=== PATIENT | female | born 1935 | race Caucasian/White ===

== ENCOUNTER 2016-11-18 14:08 | Emergency (ER) | payer OTHER ==
[2016-11-18] MEDS ORDERED: MAALOX/LIDO/HYOSC GI COCKTAIL 55 ML BOTTLE PO ONE (14:20)
[2016-11-18 14:22] VITALS: RESP 16; TEMP 98.1; O2SAT 95
--- NOTE | 2016-11-18 14:23 | EDPHY ---
H & P Time Seen by Provider: 11/18/16 14:08 HPI/ROS: CHIEF COMPLAINT: Abdominal pain HISTORY OF PRESENT ILLNESS: Patient is sent from [facility] for epigastric abdominal pain which apparently made her diaphoretic and was severe earlier but now apparently is gone. Patient has no medical complaints on arrival. She says she does not have abdominal pain. Denies vomiting or diarrhea or recent fall or trauma or any other acute problems. She has a history of reflux and says she has symptoms just like her previous heartburn earlier today. REVIEW OF SYSTEMS: Eye: no change in vision ENT: no sore throat Cardiac: no chest pain or syncope Pulmonary: no cough or SOB Abdomen: HPI Musculoskeletal: no back pain Skin: no rash Neuro: no headache Constitutional: no fever : no urinary symptoms A comprehensive 10 point review of systems is otherwise negative aside from elements mentioned in the history of present illness. PAST MEDICAL HISTORY: Includes atrial fibrillation on Eliquis, anemia, dementia and encephalopathy, COPD, pulmonary embolism, TIA, bilateral total hip arthroplasties, left total knee arthroplasty, GI bleed. Social history: Resides at [facility] General Appearance: Alert and conversant, cooperative. Eyes: No scleral icterus. ENT, Mouth: Normal mucous membranes. Respiratory: Normal respiratory effort, breath sounds equal, lungs are clear to auscultation. Cardiovascular: Regular rate and rhythm. Gastrointestinal: Abdomen is soft and non tender. Neurological: Alert and oriented x3. Normally conversant. Face symmetric, normal movement and sensation in all extremities. Skin: Warm and dry, no rashes. Musculoskeletal: No peripheral edema and no joint swelling. Psychiatric: Not agitated. Patient is very talkative and in fact it is difficult for me to interrupt her talking to ask her questions. Emergency Department course/MDM: Patient denies symptoms on arrival to the emergency department. She does not have abdominal pain and her abdominal exam is normal. Her hematocrit is 36 which is noted to be higher than previous values. She does not have ischemic changes on EKG. Smoking Status: Never smoked Constitutional: Initial Vital Signs Temperature (C) 36.7 C 11/18/16 14:08 Heart Rate 58 L 11/18/16 14:08 Respiratory Rate 16 11/18/16 14:08 Blood Pressure 121/69 H 11/18/16 14:08 O2 Sat (%) 95 11/18/16 14:08 O2 Delivery Mode Room Air Allergies/Adverse Reactions: latex [Latex] Allergy (Severe, Verified 11/18/16 14:16) Other-Enter Comments Sulfa (Sulfonamide Antibiotics) Allergy (Severe, Verified 11/18/16 14:16) Other-Enter Comments adhesive [Adhesive] Allergy (Unknown, Verified 11/18/16 14:16) Other-Enter Comments morphine Allergy (Unknown, Verified 11/18/16 14:16) Unknown furosemide [From Lasix] Allergy (Verified 11/18/16 14:16) Penicillins Allergy (Verified 11/18/16 14:16) Neutrogena SPF lotion Allergy (Severe, Uncoded 11/18/16 14:16) Other-Enter Comments Home Medications: Medication Instructions Recorded Carafate 1 GM (*) 11/18/16 Claritin 11/18/16 Dulcolax 11/18/16 Eliquis 11/18/16 Milk of Magnesia 11/18/16 OXYBUTYNIN CHLORIDE ER 11/18/16 Protonix 11/18/16 Robitussin 11/18/16 Tylenol 11/18/16 VITAMIN D 11/18/16 Medical Decision Making - Diagnostics EKG Interpretation: 12-lead EKG interpreted by me; official reading is in trace master. My interpretation is sinus rhythm with no acute ischemic changes Differential Diagnosis: Differential considered including but not limited to GI bleed, reflux, acute coronary syndrome, pancreatitis, aortic dissection, perforated ulcer - Data Points Laboratory Results: Laboratory Results 11/18/16 14:15 11/18/16 14:15 WBC 6.40 10^3/uL 10^3/uL (3.80-9.50) RBC 4.26 10^6/uL 10^6/uL (4.18-5.33) Hgb 11.6 g/dL L g/dL (12.6-16.3) Hct 36.5 % L % (38.0-47.0) MCV 85.7 fL fL (81.5-99.8) MCH 27.2 pg L pg (27.9-34.1) MCHC 31.8 g/dL L g/dL (32.4-36.7) RDW 15.9 % H % (11.5-15.2) Plt Count 306 10^3/uL 10^3/uL (150-400) MPV 8.7 fL fL (8.7-11.7) Neut % (Auto) 55.6 % % (39.3-74.2) Lymph % (Auto) 34.5 % % (15.0-45.0) [place] % (Auto) 6.4 % % (4.5-13.0) Eos % (Auto) 2.5 % % (0.6-7.6) Baso % (Auto) 0.8 % % (0.3-1.7) Nucleat RBC Rel Count 0.0 % % (0.0-0.2) Absolute Neuts (auto) 3.56 10^3/uL 10^3/uL (1.70-6.50) Absolute Lymphs (auto) 2.21 10^3/uL 10^3/uL (1.00-3.00) Absolute Monos (auto) 0.41 10^3/uL 10^3/uL (0.30-0.80) Absolute Eos (auto) 0.16 10^3/uL 10^3/uL (0.03-0.40) Absolute Basos (auto) 0.05 10^3/uL 10^3/uL (0.02-0.10) Absolute Nucleated RBC 0.00 10^3/uL 10^3/uL (0-0.01) Immature Gran % 0.2 % % (0.0-1.1) Immature Gran # 0.01 10^3/uL 10^3/uL (0.00-0.10) Medications Given: Discontinued Medications Miscellaneous Medication (Gi Cocktail) 55 ml PO EDNOW ONE Stop: 11/18/16 14:21 Last Admin: 11/18/16 14:45 Dose: 55 ml Departure - Departure Disposition: Home, Routine, Self-Care Clinical Impression: GERD (gastroesophageal reflux disease) Qualifiers: Esophagitis presence: esophagitis presence not specified Qualified Code(s): K21.9 - Gastro-esophageal reflux disease without esophagitis Condition: Good Instructions: Gastroesophageal Reflux Disease (ED) Referrals: RAYMOND GARDNER [Medical Doctor] - As per Instructions
[2016-11-18 14:27] LABS: % IMMATURE GRANULYOCYTES 0.2 % (0.0-1.1); ABSOLUTE IMMATURE GRANULOCYTES 0.01 10^3/uL (0.00-0.10); ADD DIFF? NO; ADD MORPH? NO; ADD SCAN? NO; ATYPICAL LYMPHOCYTE FLAG 0 (0-99); FRAGMENT RBC FLAG 0 (0-99); HEMATOCRIT 36.5 % (38.0-47.0); HEMOGLOBIN 11.6 g/dL (12.6-16.3); LEFT SHIFT FLG 0 (0-99); LIPEMIA HEMOLYSIS FLAG 80 (0-99); MEAN CELL HEMOGLOBIN 27.2 pg (27.9-34.1); MEAN CELL HEMOGLOBIN CONCENTR. 31.8 g/dL (32.4-36.7); MEAN CELL VOLUME 85.7 fL (81.5-99.8); MEAN PLATELET VOLUME 8.7 fL (8.7-11.7); PLATELET CLUMPS FLAG 0 (0-99); PLATELET COUNT 306 10^3/uL (150-400); RED BLOOD CELL COUNT 4.26 10^6/uL (4.18-5.33); RED CELL DISTRIBUTION WIDTH 15.9 % (11.5-15.2)
--- NOTE | 2016-11-18 15:13 | CPEKG ---
Heart Rate: 55 RR Interval: 1091 P-R Interval: 180 QRSD Interval: 84 QT Interval: 416 QTC Interval: 398 QRS [place]: 3 T Wave [place]: 13 EKG Severity - ABNORMAL ECG - EKG Impression: SINUS RHYTHM Electronically Signed By: Virgil Hanson 18-Nov-2016 16:11:37
[2016-11-18 15:21] VITALS: BP 102/62; PULSE 55
== END 2016-11-18 16:02 | disposition home or self-care (01) ==
LOC: EDUNIT#
DX: K21.9 Gastro-esophageal reflux disease without esophagitis (principal); J44.9 Chronic obstructive pulmonary disease, unspecified; Z91.040 Latex allergy status

== ENCOUNTER → 2016-12-16 | Outpatient (CLI) | payer OTHER | LOC: FIMAGING 08:19 | PROVIDERS: ATTEND Physician Assistant | DX: K44.9 Diaphragmatic hernia without obstruction or gangrene (principal); K31.84 Gastroparesis ==

== ENCOUNTER 2017-04-28 09:04 | Inpatient (IN) | payer OTHER ==
--- NOTE | 2017-04-28 09:02 | EDPHY ---
HPI/HX/ROS/PE/MDM Narrative: CHIEF COMPLAINT: Vomiting HPI: The patient is a an 81-year-old female who comes from [place] with complaints of black emesis. Patient reports black colored emesis for the past week. She has no associated abdominal pain. The patient has a history of GI bleed. She is on Eliquis for atrial fibrillation. History is otherwise limited due to patient's dementia. REVIEW OF SYSTEMS: Aside from elements discussed in the HPI, a comprehensive 10-point review of systems was reviewed and is negative. PMH: Atrial fibrillation on Eliquis, Anemia, Dementia, Encephalopathy, COPD, PE , TIA, GI bleed. SOCIAL HISTORY: Resides at [place]. PHYSICAL EXAM: General: Patient is alert, in no acute distress. ENT: Eyes are normal to inspection. ENT inspection normal. Neck: Normal inspection. Full range of motion. Respiratory: No respiratory distress. Breath sounds normal bilaterally. Cardiovascular: Regular rate and rhythm. Strong peripheral pulses. Abdomen: The abdomen is nontender to palpation. There are no peritoneal signs. There are normal bowel sounds. Back: Normal to inspection. No tenderness to palpation. Possible very early decubitis with no skin breakdown. Rectal: Brown stool noted. Sample sent. Skin: Normal color. No rash. Warm and dry. Extremities: Normal appearance. Full range of motion. Neuro: No focal deficits. ED Course: I reviewed the patient's past medical records from her visit here 11/18/16. Patient has a history of multiple admissions for GI bleeds. She is on Eliquis. Patient reports 1 week of black emesis. Hematocrit is normal. Vitals are stable. Due to patient's history and symptoms, I will admit the patient. 1008: I spoke to the hospitalist, Dr. Villegas, who accepts patient for admission. MDM: This patient presents with reported one week history of coffee-ground emesis. History is somewhat challenging given history of dementia. There are no objective data to support this hematemesis, as patient has normal Hct, normal vitals and brown stool. However, the patient does have history of multiple admissions for upper GI bleed requiring transfusion, and is currently on Eliquis. I think she would benefit from an observation stay in the hospital. - Data Points Laboratory Results: Laboratory Results 04/28/17 09:28 04/28/17 09:28 04/28/17 04/28/17 04/28/17 09:28 09:28 09:28 WBC 11.38 10^3/uL H 10^3/uL (3.80-9.50) RBC 5.13 10^6/uL 10^6/uL (4.18-5.33) Hgb 14.2 g/dL g/dL (12.6-16.3) Hct 43.8 % % (38.0-47.0) MCV 85.4 fL fL (81.5-99.8) MCH 27.7 pg L pg (27.9-34.1) MCHC 32.4 g/dL g/dL (32.4-36.7) RDW 14.7 % % (11.5-15.2) Plt Count 297 10^3/uL 10^3/uL (150-400) MPV 9.2 fL fL (8.7-11.7) Neut % (Auto) 76.5 % H % (39.3-74.2) Lymph % (Auto) 17.5 % % (15.0-45.0) [place] % (Auto) 5.1 % % (4.5-13.0) Eos % (Auto) 0.2 % L % (0.6-7.6) Baso % (Auto) 0.4 % % (0.3-1.7) Nucleat RBC Rel Count 0.0 % % (0.0-0.2) Absolute Neuts (auto) 8.72 10^3/uL H 10^3/uL (1.70-6.50) Absolute Lymphs (auto) 1.99 10^3/uL 10^3/uL (1.00-3.00) Absolute Monos (auto) 0.58 10^3/uL 10^3/uL (0.30-0.80) Absolute Eos (auto) 0.02 10^3/uL L 10^3/uL (0.03-0.40) Absolute Basos (auto) 0.04 10^3/uL 10^3/uL (0.02-0.10) Absolute Nucleated RBC 0.00 10^3/uL 10^3/uL (0-0.01) Immature Gran % 0.3 % % (0.0-1.1) Immature Gran # 0.03 10^3/uL 10^3/uL (0.00-0.10) PT 15.0 SEC SEC (12.0-15.0) INR 1.18 H (0.83-1.16) APTT 20.1 SEC L SEC (23.0-38.0) Sodium 143 mEq/L mEq/L (134-144) Potassium 4.7 mEq/L mEq/L (3.5-5.2) Chloride 102 mEq/L mEq/L (97-110) Carbon Dioxide 26 mEq/l mEq/l (22-31) Anion Gap 15 mEq/L mEq/L (8-16) BUN 28 mg/dL H mg/dL (7-23) Creatinine 0.9 mg/dL mg/dL (0.6-1.0) Estimated GFR > 60 Glucose 131 mg/dL H mg/dL (70-100) Calcium 10.3 mg/dL mg/dL (8.5-10.4) General Initial Vital Signs: Initial Vital Signs Temperature (C) 36.5 C 04/28/17 09:16 Heart Rate 69 04/28/17 09:16 Respiratory Rate 18 04/28/17 09:16 Blood Pressure 127/74 H 04/28/17 09:16 O2 Sat (%) 93 04/28/17 09:16 O2 Delivery Mode Room Air O2 (L/minute) 2 Allergies/Adverse Reactions: latex [Latex] Allergy (Severe, Verified 11/18/16 14:16) Other-Enter Comments Sulfa (Sulfonamide Antibiotics) Allergy (Severe, Verified 11/18/16 14:16) Other-Enter Comments adhesive [Adhesive] Allergy (Unknown, Verified 11/18/16 14:16) Other-Enter Comments morphine Allergy (Unknown, Verified 11/18/16 14:16) Unknown furosemide [From Lasix] Allergy (Verified 11/18/16 14:16) Penicillins Allergy (Verified 11/18/16 14:16) Neutrogena SPF lotion Allergy (Severe, Uncoded 11/18/16 14:16) Other-Enter Comments Home Medications: Medication Instructions Recorded Carafate 1 GM (*) 11/18/16 Claritin 11/18/16 Dulcolax 11/18/16 Eliquis 11/18/16 Milk of Magnesia 11/18/16 OXYBUTYNIN CHLORIDE ER 11/18/16 Protonix 11/18/16 Robitussin 11/18/16 Tylenol 11/18/16 VITAMIN D 11/18/16 Departure - Departure Disposition: [facility] Inpatient Acute Clinical Impression: Vomiting Qualifiers: Vomiting type: unspecified Vomiting Intractability: non-intractable Nausea presence: unspecified Qualified Code(s): R11.10 - Vomiting, unspecified Condition: Fair Report Scribed for: Adam Anna Report Scribed by: Christine Jackson Date of Report: 04/28/17 Time of Report: 09:12 Physician Review and Approval Statement: Portions of this note were transcribed by a medical secretary receptionist. I personally performed the history, physical exam, and medical decision-making; and confirmed the accuracy of the information in the transcribed note.
--- NOTE | 2017-04-28 09:37 | CPEKG ---
Heart Rate: 65 RR Interval: 923 P-R Interval: 148 QRSD Interval: 88 QT Interval: 408 QTC Interval: 425 P [place]: 19 QRS [place]: 35 T Wave [place]: -75 EKG Severity - ABNORMAL ECG - EKG Impression: SINUS RHYTHM EKG Impression: Artifact Electronically Signed By: Junior Wynn 30-Apr-2017 08:16:57
[2017-04-28 09:46] LABS: % IMMATURE GRANULYOCYTES 0.3 % (0.0-1.1); ABSOLUTE IMMATURE GRANULOCYTES 0.03 10^3/uL (0.00-0.10); ADD DIFF? NO; ADD MORPH? NO; ADD SCAN? NO; ATYPICAL LYMPHOCYTE FLAG 0 (0-99); FRAGMENT RBC FLAG 0 (0-99); HEMATOCRIT 43.8 % (38.0-47.0); HEMOGLOBIN 14.2 g/dL (12.6-16.3); LEFT SHIFT FLG 0 (0-99); LIPEMIA HEMOLYSIS FLAG 80 (0-99); MEAN CELL HEMOGLOBIN 27.7 pg (27.9-34.1); MEAN CELL HEMOGLOBIN CONCENTR. 32.4 g/dL (32.4-36.7); MEAN CELL VOLUME 85.4 fL (81.5-99.8); MEAN PLATELET VOLUME 9.2 fL (8.7-11.7); PLATELET CLUMPS FLAG 0 (0-99); PLATELET COUNT 297 10^3/uL (150-400); RED BLOOD CELL COUNT 5.13 10^6/uL (4.18-5.33); RED CELL DISTRIBUTION WIDTH 14.7 % (11.5-15.2)
[2017-04-28 09:56] LABS: INR 1.18 (0.83-1.16)
[2017-04-28 09:58] LABS: APTT 20.1 SEC (23.0-38.0)
[2017-04-28 10:09] LABS: ANION GAP 15 mEq/L (8-16); CALCIUM 10.3 mg/dL (8.5-10.4); CARBON DIOXIDE 26 mEq/l (22-31); CHLORIDE 102 mEq/L (97-110); CREATININE 0.9 mg/dL (0.6-1.0); GLOMERULAR FILTRATION RATE > 60; GLUCOSE 131 mg/dL (70-100); POTASSIUM 4.7 mEq/L (3.5-5.2); SODIUM 143 mEq/L (134-144)
[2017-04-28] MEDS ORDERED: ONDANSETRON DISINTEGRATING 4 MG TAB PO PRN ×2 (13:22→13:24)
[2017-04-28] MEDS ORDERED: ACETAMINOPHEN 325 MG TAB PO PRN (13:22)
[2017-04-28] MEDS ORDERED: ONDANSETRON 4 MG/2 ML VIAL IVP PRN (13:22)
[2017-04-28] MEDS ORDERED: BENZOCAINE (ORAJEL) GEL 11.9GM TUBE TP PRN (13:24)
[2017-04-28] MEDS ORDERED: NS 1,000 ML IV SCH (13:30)
[2017-04-28 14:02] LABS: HEMATOCRIT 39.9 % (38.0-47.0); HEMOGLOBIN 13.2 g/dL (12.6-16.3)
--- NOTE | 2017-04-28 14:43 | GHP ---
[f rep st] HISTORY AND PHYSICAL DATE OF ADMISSION: 04/28/2017 HISTORY OF PRESENT ILLNESS: The patient is a pleasant 81-year-old female with history of anticoagul ation for multiple VTE events, as well as recurrent episodes of upper GI bleed, who presents with da rk vomit. She has been vomiting for what she says is about a week. The patient has some memory iss ues, so a bit hard to exactly trust her history. She has not had any melena. She has not had any b right red blood per rectum. She has not had any hematemesis. She lives at [place], so it is sharyn sonable to assume that she continues to take her medications. REVIEW OF SYSTEMS: A complete 10-point review of systems is conducted and negative except as noted in the HPI. PAST MEDICAL HISTORY: 1. Upper GI bleed secondary to esophageal ulcers and esophagitis. She has also had Varghese lesion secondary to hiatal hernia implicated. 2. Incarcerated hiatal hernia, status post Rosalie by Dr. Fam about a year ago. 3. Atrial fibrillation. 4. Recurrent PEs and DVTs. 5. Bipolar. 6. Dementia. 7. History of stroke without residual deficit. 8. History of left total knee arthroplasty. 9. Bilateral hip replacements. ALLERGIES: She is allergic to penicillin, sulfa, latex, morphine, and adhesive. HOME MEDICATIONS: Eliquis, pantoprazole, Tylenol, benzocaine, vitamin D3, nadolol, ondansetron, oxy butynin, sucralfate. SOCIAL HISTORY: She lives at [place]. No tobacco, no alcohol at this point in time. FAMILY HISTORY: Parents . PHYSICAL EXAMINATION: PRESENTING VITALS: Blood pressure 124/74, pulse 69, breathing 18 times a min nulato, 93% on room air. GENERAL: No acute distress. HEENT: Sclerae anicteric. Oropharynx clear. Mucous membranes moist. NECK: Supple without lymphadenopathy or JVD. LUNGS: Clear to auscultatio n bilaterally. HEART: S1, S2. ABDOMEN: Soft, nontender, nondistended. LOWER EXTREMITIES: Witho ut edema. Calves nontender. SKIN: Without rash. NEUROLOGIC: Nonfocal. There is a bucket with about 500 cc of dark brown emesis in it. LABORATORY DATA: White count 11.4, hematocrit 43.8, platelets are 297. In the past, she has presen yesenia with very low hemoglobin, like 5.9 most recently in June. INR is 1.18. Sodium 143, potassiu m 4.7, chloride 102, bicarb 26, BUN 28, creatinine 0.9, glucose 131. Stool is guaiac positive. I perla abarca discussed the case with Dr. Adam Anna. EKG, interpreted by me, shows sinus at 65 with norm al axis and intervals. No ST or T-wave changes. ASSESSMENT AND PLAN: An 81-year-old female with a history of upper gastrointestinal bleed, presents with upper gastrointestinal bleed. 1. Upper gastrointestinal bleed. Presumably, she has esophagitis. I will go ahead and follow her hematocrit. I put her on a proton pump inhibitor IV b.i.d. Continue with sucralfate. At this point in time, I am going to hold off on GI consult given her absence of anemia. Will follow hematocrit q.6. 2. History of multiple venous thromboembolism. I am going to hold her Eliquis for the time being. 3. Dementia. We will follow and minimize sedating medications. 4. No bowel movement in 1 week. It is difficult to know if this is clear or not. I will check an abdominal x-ray with chest x-ray for further evaluation. 5. Prophylaxis. Pharmacologic prophylaxis contraindicated. DISPOSITION: Inpatient status. /[id number]/MODL
[2017-04-28] MEDS ORDERED: SUCRALFATE 100 MG/ML UDSYR PO SCH (16:00)
[2017-04-28] MEDS: SUCRALFATE 1 GM/10 ML UDCUP PO SCH ×2 (16:29→21:45)
[2017-04-28 19:40] LABS: HEMATOCRIT 35.8 % (38.0-47.0); HEMOGLOBIN 11.6 g/dL (12.6-16.3)
[2017-04-28] MEDS: PANTOPRAZOLE SODIUM 40 MG in NS 100 ML IV SCH (21:45)
[2017-04-28] MEDS: OXYBUTYNIN 5 MG EXT REL TAB PO SCH (21:45)
[2017-04-29] MEDS: OXYBUTYNIN 5 MG EXT REL TAB PO SCH ×2 (00:55→21:23)
[2017-04-29] MEDS: SUCRALFATE 1 GM/10 ML UDCUP PO SCH ×5 (00:55→21:25)
[2017-04-29 05:17] LABS: APTT 24.1 SEC (23.0-38.0); INR 1.44 (0.83-1.16); PROTIME(PATIENT) 17.5 SEC (12.0-15.0)
[2017-04-29 05:28] LABS: ANION GAP 12 mEq/L (8-16); CALCIUM 8.9 mg/dL (8.5-10.4); CARBON DIOXIDE 22 mEq/l (22-31); CHLORIDE 106 mEq/L (97-110); CREATININE 0.8 mg/dL (0.6-1.0); GLOMERULAR FILTRATION RATE > 60; GLUCOSE 91 mg/dL (70-100); POTASSIUM 4.2 mEq/L (3.5-5.2); SODIUM 140 mEq/L (134-144)
[2017-04-29] MEDS: NADOLOL 20 MG TAB PO SCH (07:40)
[2017-04-29] MEDS: CHOLECALCIFEROL VIT D3 2,000 UNITS TAB/CAP PO SCH (09:04)
[2017-04-29] MEDS: PANTOPRAZOLE SODIUM 40 MG in NS 100 ML IV SCH ×2 (09:04→21:53)
[2017-04-29] MEDS ORDERED: GOLYTELY 4000 ML BTL PO ONE (10:58)
--- NOTE | 2017-04-29 11:39 | HOSPPROG ---
Hospitalist Progress Note Assessment/Plan: 81 yo F w chronic anticoag for recurrent VTE and repeated admits for UGIB here w dark emesis, severe constipation constipation: golytley prep until BM benign exam ?UGIB: AC on hold hct > baseline bid IV ppi dark vomit has stopped follow w no endoscopy today bipolar: continue meds proph: as above restart eliquis in exam dispo: inpt Subjective: abd film w severe constipation (interp by me). no further vomiting Objective: Vital Signs Temp Pulse Resp BP Pulse Ox 36.8 C 73 16 111/65 93 04/29/17 08:00 04/29/17 08:00 04/29/17 08:00 04/29/17 08:00 04/29/17 08:00 Laboratory Results 04/28/17 19:25 04/29/17 04:20 04/28/17 04/29/17 04/30/17 05:59 05:59 05:59 Intake Total 2101 Output Total 800 Balance 1301 PT 17.5 SEC (12.0-15.0) H 04/29/17 04:20 INR 1.44 (0.83-1.16) H 04/29/17 04:20 - Physical Exam Constitutional: no apparent distress, appears nourished Eyes: PERRL, anicteric sclera Ears, Nose, Mouth, Throat: moist mucous membranes, hearing normal Cardiovascular: regular rate and rhythym, no murmur, rub, or gallop Respiratory: no respiratory distress, no rales or rhonchi Gastrointestinal: normoactive bowel sounds, No guarding, No rebound Genitourinary: no bladder fullness, No mayberry in urethra Skin: warm, normal color Musculoskeletal: full muscle strength Neurologic: AAOx3, sensation intact bilaterally Psychiatric: interacting appropriately, not anxious ICD10 Worksheet Patient Problems: Problems Problem Status Onset Vomiting Acute Coffee ground emesis Acute DVT (deep venous thrombosis) Acute Hematemesis Acute Melena Acute Supratherapeutic INR Acute Acute post-hemorrhagic anemia Chronic Afib Chronic Atrial fibrillation with rapid ventricular response Chronic Bipolar 1 disorder Chronic COPD (chronic obstructive pulmonary disease) Chronic Chronic respiratory failure Chronic Gastrointestinal bleed Chronic History of CVA (cerebrovascular accident) Chronic History of pulmonary embolism Chronic
[2017-04-29 11:50] LABS: HEMATOCRIT 27.5 % (38.0-47.0); HEMOGLOBIN 8.9 g/dL (12.6-16.3)
[2017-04-29 13:44] LABS: HEMATOCRIT 30.7 % (38.0-47.0); HEMOGLOBIN 9.8 g/dL (12.6-16.3)
[2017-04-29] MEDS ORDERED: MAGNESIUM CITRATE 300 ML BOTTLE PO ONE (17:32)
[2017-04-29] MEDS: ACETAMINOPHEN 500 MG TAB PO PRN (21:23)
[2017-04-30 04:57] LABS: HEMATOCRIT 26.3 % (38.0-47.0); HEMOGLOBIN 8.6 g/dL (12.6-16.3)
[2017-04-30 05:15] LABS: ANION GAP 8 mEq/L (8-16); CALCIUM 8.6 mg/dL (8.5-10.4); CARBON DIOXIDE 26 mEq/l (22-31); CHLORIDE 102 mEq/L (97-110); CREATININE 0.8 mg/dL (0.6-1.0); GLOMERULAR FILTRATION RATE > 60; GLUCOSE 84 mg/dL (70-100); POTASSIUM 3.7 mEq/L (3.5-5.2); SODIUM 136 mEq/L (134-144)
[2017-04-30] MEDS: NADOLOL 20 MG TAB PO SCH (05:59)
[2017-04-30] MEDS: SUCRALFATE 1 GM/10 ML UDCUP PO SCH ×4 (06:00→19:54)
[2017-04-30] MEDS: CHOLECALCIFEROL VIT D3 2,000 UNITS TAB/CAP PO SCH (09:04)
[2017-04-30] MEDS: PANTOPRAZOLE SODIUM 40 MG in NS 100 ML IV SCH (09:05)
[2017-04-30] MEDS ORDERED: MAGNESIUM CITRATE 300 ML BOTTLE PO ONE (15:03)
[2017-04-30] MEDS ORDERED: BISACODYL 10 MG SUPP PR ONE (15:03)
--- NOTE | 2017-04-30 15:10 | HOSPPROG ---
Hospitalist Progress Note Assessment/Plan: 81 yo F w chronic anticoag for recurrent VTE and repeated admits for UGIB here w dark emesis, severe constipation constipation: wouldnt drink golytely mag citrate dulcolax fleets ?UGIB: hct stabilized at baseline restart eliquis po ppi bipolar: continue meds proph: as above restart eliquis in exam dispo: inpt Subjective: abd film w continued sig constipation (interp by me) Objective: Vital Signs Temp Pulse Resp BP Pulse Ox 36.4 C 81 18 89/49 L 92 04/30/17 12:00 04/30/17 12:00 04/30/17 12:00 04/30/17 14:07 04/30/17 12:00 Laboratory Results 04/30/17 04:44 04/30/17 04:44 04/29/17 04/30/17 05/01/17 05:59 05:59 05:59 Intake Total 2101 800 Output Total 800 Balance 1301 800 PT 17.5 SEC (12.0-15.0) H 04/29/17 04:20 INR 1.44 (0.83-1.16) H 04/29/17 04:20 - Physical Exam Constitutional: no apparent distress, appears nourished Eyes: PERRL, anicteric sclera Ears, Nose, Mouth, Throat: moist mucous membranes, hearing normal Cardiovascular: regular rate and rhythym, no murmur, rub, or gallop Respiratory: no respiratory distress, no rales or rhonchi Gastrointestinal: normoactive bowel sounds, soft, non-tender abdomen, No guarding, No rebound Genitourinary: no bladder fullness, No mayberry in urethra Skin: warm, normal color Musculoskeletal: full muscle strength ICD10 Worksheet Patient Problems: Problems Problem Status Onset Vomiting Acute Coffee ground emesis Acute DVT (deep venous thrombosis) Acute Hematemesis Acute Melena Acute Supratherapeutic INR Acute Acute post-hemorrhagic anemia Chronic Afib Chronic Atrial fibrillation with rapid ventricular response Chronic Bipolar 1 disorder Chronic COPD (chronic obstructive pulmonary disease) Chronic Chronic respiratory failure Chronic Gastrointestinal bleed Chronic History of CVA (cerebrovascular accident) Chronic History of pulmonary embolism Chronic
[2017-04-30] MEDS: APIXABAN 2.5 MG TAB PO SCH (19:54)
[2017-04-30] MEDS: OXYBUTYNIN 5 MG EXT REL TAB PO SCH (19:54)
[2017-04-30] MEDS: ACETAMINOPHEN 500 MG TAB PO PRN (22:32)
[2017-05-01] MEDS: SUCRALFATE 1 GM/10 ML UDCUP PO SCH ×2 (05:49→10:28)
[2017-05-01] MEDS: NADOLOL 20 MG TAB PO SCH (05:59)
[2017-05-01] MEDS ORDERED: PANTOPRAZOLE SODIUM 40 MG TAB PO SCH (09:00)
[2017-05-01 09:48] VITALS: RESP 20
--- NOTE | 2017-05-01 09:52 | HOSPPROG ---
Hospitalist Progress Note Assessment/Plan: 81 yo F w chronic anticoag for recurrent VTE and repeated admits for UGIB here w dark emesis, severe constipation constipation: has moved bowels ?UGIB: hct stabilized at baseline restart eliquis po ppi repeat hct today bipolar: continue meds proph: as above restart eliquis in exam dispo: dc today if hct stable > 30 minutes Subjective: moving bowels. doesnt feel constipate. no further vomiting Objective: Vital Signs Temp Pulse Resp BP Pulse Ox 36.4 C 59 L 20 88/50 L 96 05/01/17 09:46 05/01/17 09:46 05/01/17 09:46 05/01/17 09:46 05/01/17 09:46 Laboratory Results 04/30/17 04:44 04/30/17 04:44 04/30/17 05/01/17 05/02/17 05:59 05:59 05:59 Intake Total 800 500 Output Total 300 Balance 800 200 PT 17.5 SEC (12.0-15.0) H 04/29/17 04:20 INR 1.44 (0.83-1.16) H 04/29/17 04:20 - Physical Exam Constitutional: no apparent distress, appears nourished Eyes: PERRL, anicteric sclera Ears, Nose, Mouth, Throat: moist mucous membranes, hearing normal Cardiovascular: regular rate and rhythym, no murmur, rub, or gallop Respiratory: no respiratory distress, no rales or rhonchi Gastrointestinal: normoactive bowel sounds, soft, non-tender abdomen Genitourinary: no bladder fullness, No mayberry in urethra Skin: warm, normal color Musculoskeletal: full muscle strength, no muscle tenderness Neurologic: AAOx3, sensation intact bilaterally Psychiatric: interacting appropriately, not anxious Lymph, Heme, Immunologic: no cervical LAD ICD10 Worksheet Patient Problems: Problems Problem Status Onset Vomiting Acute Coffee ground emesis Acute DVT (deep venous thrombosis) Acute Hematemesis Acute Melena Acute Supratherapeutic INR Acute Acute post-hemorrhagic anemia Chronic Afib Chronic Atrial fibrillation with rapid ventricular response Chronic Bipolar 1 disorder Chronic COPD (chronic obstructive pulmonary disease) Chronic Chronic respiratory failure Chronic Gastrointestinal bleed Chronic History of CVA (cerebrovascular accident) Chronic History of pulmonary embolism Chronic
[2017-05-01 10:15] LABS: HEMOGLOBIN 8.7 g/dL (12.6-16.3)
[2017-05-01] MEDS: CHOLECALCIFEROL VIT D3 2,000 UNITS TAB/CAP PO SCH (10:28)
[2017-05-01] MEDS: APIXABAN 2.5 MG TAB PO SCH (10:28)
--- NOTE | 2017-05-01 12:37 | PDIAF ---
- Diagnosis Diagnosis: constipation, vomiting Code Status: Do Not Resuscitate - Medication Management Discharge Medications: Medications to Continue on Transfer Apixaban [Eliquis] 2.5 mg PO BID 11/18/16 [Last Taken 04/27/17 21:00] Cholecalciferol Vit D3 [Vitamin D3 2000 units tab (OTC)] 2,000 units PO DAILY [Last Taken 04/27/17] Oxybutynin Chloride Xl [Ditropan Xl 5mg (*)] 5 mg PO HS 11/18/16 [Last Taken ] Pantoprazole Sodium [Protonix 40mg (*)] 40 mg PO DAILY 11/18/16 [Last Taken ] Sucralfate [Carafate Oral Liquid 100 mg/ml] 10 ml PO QID@05,10,16,11/18/16 [ Last Taken 04/28/17 05:00] Acetaminophen [Tylenol ES 500 mg (*)] 1,000 mg PO Q6HRS PRN 04/28/17 [Last Taken 04/23/17 05:16] Benzocaine [Orajel (*)] 1 yolanda TP Q4HRS PRN 04/28/17 [Last Taken Unknown] Nadolol [Nadolol 20 mg (*)] 10 mg PO DAILY06 04/28/17 [Last Taken 04/27/17] Ondansetron Odt [Zofran Odt 4 mg (*)] 4 mg PO BID PRN 04/28/17 [Last Taken 04/28 04:46] Polyethylene Glycol 3350 [Miralax 17 gm (*)] 17 gm PO DAILY #30 pkt 05/01/17 [ Last Taken Unknown] Discharge Medications: Refer to the Discharge Home Medication list for PRN reason. - Orders Services needed: Registered Nurse, Certified Workers' Compensation Mediator, Physical Therapy, Occupational Therapy - Follow Up Care Current Providers and Referrals: Patient,NotPresent [Primary Care Provider] - As per Instructions
[2017-05-01 13:01] VITALS: BP 86/37; PULSE 62; TEMP 97.6; O2SAT 94
--- NOTE | 2017-05-01 13:02 | GDS ---
[f rep st] DISCHARGE SUMMARY DISCHARGE DIAGNOSES: 1. Severe constipation with impaction. 2. Dark vomiting with a history of upper gastrointestinal bleed, not clearly happening here. 3. Schizophrenia. 4. Chronic anticoagulation for recurrent venous thrombosis. 5. History of inferior vena cava filter. 6. History of incarcerated hiatal hernia status post Rosalie. 7. Atrial fibrillation. 8. Dementia. Please see admission history and physical by Dr. Anjum Villegas. The patient presented with dark vomit from [place] where she resides. At that time, she was not anemic; in fact, her hemoglobin was f ar above her baseline. She was guaiac positive from below. The patient was treated with antiemetics. Her hematocrit fell. Her hemoglobin fell into the high 8 /low 9 range, which is consistent with about her baseline, although her baseline is a little difficu lt to know in the sense that she typically presents here in the setting of an upper GI bleed. Our a nticoagulation was held. Endoscopy was not performed because there was no evidence of large volume GI bleeding. Previous endoscopic efforts have not revealed any convincing source of bleeding or any thing remediable to therapeutic endoscopic therapies. The patient had an abdominal film performed which showed a significant amount of constipation and sh e underwent an aggressive bowel regimen with redo stool burden. She is tolerating a normal diet. S he is discharged home today to [place]. /[id number]/MODL
== END 2017-05-01 14:52 | DRG 390 ==
LOC: EDUNIT# → F3E 11:01 → OBSVTOIN 13:22
PROVIDERS: ADMIT Internal Medicine; ATTEND Internal Medicine
DX: K56.41 Fecal impaction (principal); R11.10 Vomiting, unspecified; I48.91 Unspecified atrial fibrillation; F03.90 Unspecified dementia, unspecified severity, without behavioral disturbance, psychotic disturbance, mood disturbance, and anxiety; J44.9 Chronic obstructive pulmonary disease, unspecified; F31.9 Bipolar disorder, unspecified; F20.9 Schizophrenia, unspecified; Z79.01 Long term (current) use of anticoagulants; Z96.643 Presence of artificial hip joint, bilateral; Z86.711 Personal history of pulmonary embolism; Z86.718 Personal history of other venous thrombosis and embolism; Z86.73 Personal history of transient ischemic attack (TIA), and cerebral infarction without residual deficits
CPT/HCPCS: 97161-GP; 97165-GO; 97530-GP; G8978-GP-CL; G8979-GP-CJ; G8987-GO-CK; G8988-GO-CJ